=== PATIENT | female | born 1980 | race Caucasian/White ===

== ENCOUNTER 2017-06-11 10:59 | Inpatient (IN) | payer BC ==
[~2017-06-11] VITALS: Ht 160 cm; Wt 86.0 kg
--- NOTE | 2017-06-13 16:04 | HP ---
ADMIT: 06/11/2017 RM/LOC: 623 [facility] MR#: [id number] [address] [address] [place] [address] History and Physical SEX: F AGE: 36 : 1980 DATE OF SERVICE: CHIEF COMPLAINT: Shortness of breath. HISTORY OF PRESENT ILLNESS: The patient is a very pleasant 36-year-old female, known to me from clinic, who last Sunday was seen for an acute asthma exacerbation. Started on steroids. Over the weekend, she did not improve. Increasingly short of breath today. No fevers measured but feels feverish. No chills. Poor oral intake. Increasingly short of breath despite DuoNeb as well, taking her prednisone. No nausea. No vomiting. Feels very tight in her chest and has some substernal chest pain as well. PAST MEDICAL HISTORY: 1. Depression. 2. GERD. 3. History of asthma. 4. Hypothyroidism. FAMILY HISTORY: Significant for pancreatic cancer in her father. SOCIAL HISTORY: She continues to smoke. Rare alcohol use. MEDICATIONS: She is on: 1. DuoNeb. 2. Paxil 30 mg a day. 3. Recently started on prednisone. ALLERGIES: NONE. REVIEW OF SYSTEMS: As per HPI. Otherwise, completely reviewed and negative. PHYSICAL EXAMINATION: VITAL SIGNS: Blood pressure 126/84, pulse 104, temperature 37.4, respiratory rate 16, O2 saturation 88%. GENERAL: She is alert and oriented x3. Appears ill appearing, very tired appearing. HEENT: Normocephalic, atraumatic. Pupils are equal, round, and reactive to light and accommodation. Extraocular muscles are intact. Very dry mucous membranes. NECK: No lymphadenopathy. Soft, supple. Trachea midline. LUNGS: Very coarse throughout. High pitched wheezing throughout, worsened. Poor air flow throughout. Otherwise, lungs sounds heard throughout the entirety of the lung candelario. Symmetric thoracic excursion. HEART: Tachycardic. No murmurs, rubs, or gallops. ABDOMEN: Soft, nontender, and nondistended. Bowel sounds present. EXTREMITIES: No cyanosis, clubbing, or edema. MUSCULOSKELETAL: A 5/5 strength in all 4 extremities. NEUROLOGICAL: No focal deficits noted. Cranial nerves II through XII grossly intact. ADMIT: 06/11/2017 RM/LOC: 623 [facility] MR#: [id number] [address] [address] [place] [address] History and Physical SEX: F AGE: 36 : 1980 X-ray, I reviewed personally. I do not see any infiltrate. Some peribronchial cuffing consistent with bronchitis. LABORATORY AND X-RAY DATA: Potassium is 3.3. White count 15.7, platelets 252, hemoglobin 14.4. Creatinine 0.6. ASSESSMENT: 1. Acute, severe asthma exacerbation. 2. Hypoxic respiratory failure. 3. Depression and anxiety. PLAN: At this point in time, she now has borderline O2 sats. Worsening of her asthma exacerbation, severe. This is despite outpatient steroids. We will put her in the hospital, put her on some IV steroids and try some antibiotics as well given that she has had some fevers at home. No specific infiltrate, but we will check a chest x-ray in the morning. Give her some IV mag sulfate. Bronchodilator therapy. The patient is agreeable to plan. Ilia Delgado MD/ [place] JOB #: [id number] CC: Ilia Delgado, Attending Physician Ilia Delgado, Family Physician
[2017-06-14] MEDS ORDERED: LEVAQUIN DPS500 MG PO (19:35)
[2017-06-14] MEDS ORDERED: DUONEB DPS3 ML IH (19:35)
[2017-06-14] MEDS ORDERED: DELTASONE DPS10 MG PO (19:35)
[2017-06-14] MEDS ORDERED: XANAX DPS0.25 MG PO (19:35)
[2017-06-14] MEDS ORDERED: PAXIL20 MG PO (19:35)
--- NOTE | 2017-06-15 08:12 | DS ---
ADMIT: 06/11/2017 RM/LOC: 623 [facility] MR#: [id number] [address] [address] [place] [address] Discharge Summary SEX: F AGE: 36 : 1980 ADMISSION DATE: 06/11/2017 DISCHARGE DATE: 06/13/2017 CONSULTATIONS: None. PROCEDURES: None. FINAL DIAGNOSES: 1. Acute severe asthma exacerbation. 2. Hypoxic respiratory failure secondary to number one. 3. Depression. 4. Anxiety. 5. Tobacco abuse. REASON FOR ADMISSION: The patient is a pleasant 36-year-old female who presented to the office with increasing shortness of breath, wheezing, and hypoxic. She was admitted to the hospital due to failed outpatient treatment of her asthma exacerbation. HOSPITAL COURSE: The patient was admitted. Placed on IV steroids, IV mag sulfate, bronchodilators, and antibiotics. She very slowly improved. Ultimately felt safe and stable for discharge to home. DISCHARGE INSTRUCTIONS: She will discharge to home. Finish a three day course of Levaquin, prednisone taper, Xanax for anxiety short-term as she quit smoking, and Paxil. She has some Chantix she may consider restarting at home. Otherwise, follow up with me in two weeks. Less than 25 minutes spent on day of discharge doing discharge day activities. Ilia Delgado MD/ [place] JOB #: [id number] CC: Ilia Delgado MD, Attending Physician Ilia Delgado MD, Family Physician
== END 2017-06-13 14:15 | disposition home or self-care (01) | DRG 202 ==
LOC: 6PED 10:59
PROVIDERS: ADMIT Internal Medicine
DX: J45.901 Unspecified asthma with (acute) exacerbation (principal); J96.91 Respiratory failure, unspecified with hypoxia; F32.9 Major depressive disorder, single episode, unspecified; K21.9 Gastro-esophageal reflux disease without esophagitis; E03.9 Hypothyroidism, unspecified; F17.210 Nicotine dependence, cigarettes, uncomplicated; F41.9 Anxiety disorder, unspecified